=== PATIENT | male | born 1960 | race Caucasian/White ===

== ENCOUNTER 2023-12-28 23:50 | Emergency (ER) | payer MEDICARE ==
[2023-12-29 00:08] VITALS: TEMP 97.4
[2023-12-29] MEDS: TYLENOL 325 MG PO ONE (00:15)
[2023-12-29] MEDS ORDERED: TYLENOL 325 MG ONE (00:15)
--- NOTE | 2023-12-29 00:27 | ERPHSYRPT ---
- History of Present Illness Time Seen by Provider: 12/29/23 00:10 Source: patient Exam Limitations: no limitations Patient Subjective Stated Complaint: pt states "My back started hurting 4 days ago and it is not getting any better." Triage Nursing Assessment: pt ambulatory to bed with slow steady gait, pt alert and oriented x3, skin pwd, pt c/o R middle back pain x4 days, pt has hx of back issues and multiple back surgeries. pt denies any heavy lifting recently. pt denies any new numbness or tingling in extremities. Physician History: 63yo m presents by private vehicle for right sided back and flank pain that has been ongoing for 5d. Pt states he has treated the pain w/ muscle relaxers w/ some relief but they have not helped today. Pt states the pain is worse w/ laying flat. Pt is tender to palpation in lateral mid back around to flank. Pt reports hx of kidney stones, states the pain is similar. Pt also reports significant hx of back injuries and surgeries. Pt denies pain radiation into LEs, denies loss of bowel/bladder function, denies saddle parasthesias, dysuria, hematuria, fevers, n/v. Timing/Duration: day(s) (5) Quality: sharp, aching Back Pain Location: T-spine, paraspinous muscles Severity of Pain-Max: moderate Severity of Pain-Current: moderate Modifying Factors: Improves With: pain medication Associated Symptoms: denies symptoms Allergies/Adverse Reactions: No Known Drug Allergies Allergy (Verified 12/28/23 23:57) Home Medications: Atorvastatin Calcium 40 mg PO DAILY 12/29/23 [History] Clopidogrel Bisulfate [Plavix] 75 mg PO DAILY 12/29/23 [History] Fenofibrate 54 mg PO DAILY 12/29/23 [History] Insuln Asp Prt/Insulin Aspart* [NovoLOG 70/30 Mix] 40 units SQ BID 12/29/23 [History] Metoprolol Succinate 50 mg [Toprol Xl 50 MG] 50 mg PO DAILY 12/29/23 [History] Hx Tetanus, Diphtheria Vaccination/Date Given: No Hx Influenza Vaccination/Date Given: No Hx Pneumococcal Vaccination/Date Given: No Immunizations Up to Date: No Travel Risk - International Travel Have you traveled outside of the country in past 3 weeks: No - Emerging Infectious Disease Are you exhibiting symptoms associated with any current EIDs: No - Review of Systems Constitutional: No Symptoms Respiratory: No Symptoms Cardiac: No Symptoms Abdominal/Gastrointestinal: Other (flank pain) Musculoskeletal: Back Pain, No Injury Neurological: No Symptoms - Past Medical History Pertinent Past Medical History: Yes Neurological History: Peripheral Neuropathy ENT History: No Pertinent History Cardiac History: Myocardial Infarction (ID) Respiratory History: COPD Endocrine Medical History: Diabetes Type II Musculoskeletal History: Fractures GI Medical History: Diverticulitis, GERD, Hernia History: No Pertinent History Psycho-Social History: No Pertinent History Male Reproductive Disorders: No Pertinent History - Past Surgical History Past Surgical History: Yes Neuro Surgical History: No Pertinent History Cardiac: Cardiac Catheterization, Cardiac Stent Respiratory: No Pertinent History Gastrointestinal: No Pertinent History Genitourinary: No Pertinent History Musculoskeletal: No Pertinent History Male Surgical History: No Pertinent History Other Surgical History: L arm, several back surgeries - Social History Smoking Status: Current every day smoker How long have you smoked: 19 Exposure to second hand smoke: No Drug Use: none - Nursing Vital Signs Nursing Vital Signs: Initial Vital Signs Temperature 97.4 F 12/28/23 23:58 Pulse Rate 101 H 12/28/23 23:58 Respiratory Rate 19 12/28/23 23:58 Blood Pressure 164/93 12/28/23 23:58 O2 Sat by Pulse Oximetry 96 12/28/23 23:58 Pain Scale Pain Intensity [Right Upper 7 Back] Pain Intensity 5 - Physical Exam General Appearance: no apparent distress, alert Respiratory Exam: normal breath sounds, lungs clear, No chest tenderness, No respiratory distress Cardiovascular Exam: regular rate/rhythm, normal heart sounds Gastrointestinal Exam: soft, other (mild flank pain - right), No tenderness, No distention, No guarding Back Exam: normal inspection, CVA tenderness (right), muscle spasm, other (TTP over paraspinal musculature right lateral mid thoracic spine), No vertebral tenderness, No rash, No point tenderness Extremity Exam: normal inspection Neurologic Exam: alert, oriented x 3, cooperative, normal mood/affect, sensation nml, No motor deficits, No sensory deficit Skin Exam: normal color, warm, dry SpO2 Interpretation: normal SpO2: 96 O2 Delivery: Room Air Ordered Tests: Active Orders 24 hr Category Date Time Status AMA [Release AMA] OM.NOW Care 12/29/23 01:16 Completed ABDOMEN AND PELVIS W/0 CONTRAS [CT] Stat Exams 12/29/23 00:12 Taken CBC W DIFF Stat Lab 12/29/23 00:43 Completed CMP Stat Lab 12/29/23 00:43 Completed UA W/RFX UR CULTURE Stat Lab 12/29/23 00:12 Ordered Medication Summary Discontinued Medications Generic Name Dose Route Start Last Admin Trade Name Aldo PRN Reason Stop Dose Admin Acetaminophen 975 mg 12/29/23 00:10 12/29/23 00:15 Acetaminophen 325 Mg Tablet PO 12/29/23 00:11 975 mg STAT ONE Administration Acetaminophen Confirm 12/29/23 00:15 Acetaminophen 325 Mg Tablet Administered 12/29/23 00:16 Dose 975 mg .ROUTE .[employer]-MED ONE Lab/Rad Data: Laboratory Result Diagrams 12/29/23 00:43 12/29/23 00:43 Laboratory Results 12/29/23 12/29/23 Range/Units 00:43 00:43 WBC 13.5 H (4.0-10.5) x10^3/uL RBC 5.61 H (4.1-5.6) x10^6/uL Hgb 15.5 (12.5-18.0) g/dL Hct 46.6 (42-50) % MCV 83.1 (78-100) fL MCH 27.6 (26-32) pg MCHC 33.3 (32-36) g/dL RDW 13.7 (11.5-14.0) % Plt Count 199 (150-450) x10^3/uL MPV 9.7 (7.5-11.0) fL Gran % 71.7 H (36.0-66.0) % Immature Gran % (Auto) 0.9 H (0.00-0.4) % Nucleat RBC Rel Count 0.0 (0.00-0.1) % Eos # (Auto) 0.07 (0-0.5) x10^3/uL Immature Gran # (Auto) 0.12 H (0.00-0.03) x10^3u/L Absolute Lymphs (auto) 2.27 (1.0-4.6) x10^3/uL Absolute Monos (auto) 1.33 H (0.0-1.3) x10^3/uL Absolute Nucleated RBC 0.00 (0.00-0.01) x10^3u/L Lymphocytes % 16.8 L (24.0-44.0) % Monocytes % 9.8 (0.0-12.0) % Eosinophils % 0.5 (0.00-5.0) % Basophils % 0.3 (0.0-0.4) % Absolute Granulocytes 9.68 H (1.4-6.9) x10^3/uL Basophils # 0.04 (0-0.4) x10^3/uL Sodium 132 L (135-145) mmol/L Potassium 4.2 (3.5-5.1) mmol/L Chloride 103 (98-107) mmol/L Carbon Dioxide 21 L (22-30) mmol/L Anion Gap 11.7 (5-15) MEQ/L BUN 24 H (9-20) mg/dL Creatinine 1.35 H (0.66-1.25) mg/dL Estimated GFR 59.0 ML/MIN Glucose 231 H (74-106) mg/dL Calcium 9.5 (8.4-10.2) mg/dL Total Bilirubin 0.40 (0.2-1.3) mg/dL AST 18 (17-59) U/L ALT 27 (0-50) U/L Alkaline Phosphatase 112 (38-126) U/L Serum Total Protein 6.6 (6.3-8.2) g/dL Albumin 3.8 (3.5-5.0) g/dL - Progress Progress: pain not gone completely Progress Note: 12/29/23 01:22 I went to discuss lab results w/ pt who then requested to go for a walk outside of the ED. I informed pt that patients are not allowed to leave the ED while under ED care. Pt then stated that if he was not allowed to go outside that he would just leave. I recommended pt stay until all lab work and imaging had resulted, to which he stated he was going home. Nursing staff provided pt w/ AMA paperwork at that time. I discussed possibility for worsening of current condition w/o further workup that could result in serious complications. Pt stated he was aware and still wanted to leave AMA. Counseled pt/family regarding: lab results - Departure Departure Disposition: AMA Clinical Impression: Back pain Qualifiers: Back pain location: thoracic back pain Chronicity: chronic Back pain laterality: right Qualified Code(s): M54.6 - Pain in thoracic spine; G89.29 - Other chronic pain Condition: Stable Critical Care Time: No Referrals: VENICE CALLAHAN MD [Primary Care Provider] - Follow up/PCP as directed
[2023-12-29 00:45] LABS: Absolute Neutrophil Ct (ANC) 9.68 x10^3/uL (1.4-6.9); BASOPHIL % 0.3 % (0.0-0.4); Basophil (Absolute #) 0.04 x10^3/uL (0-0.4); Eosinophil % 0.5 % (0.00-5.0); Eosinophil (Absolute #) 0.07 x10^3/uL (0-0.5); Hematocrit 46.6 % (42-50); Hemoglobin 15.5 g/dL (12.5-18.0); IMMATURE GRAN # 0.12 x10^3u/L (0.00-0.03); IMMATURE GRAN % 0.9 % (0.00-0.4); Lymphocyte (Absolute #) 2.27 x10^3/uL (1.0-4.6); Lymphocytes % 16.8 % (24.0-44.0); Mean Cell Volume 83.1 fL (78-100); Mean Corpuscular Hemoglobin 27.6 pg (26-32); Mean Corpuscular Hgb Concent. 33.3 g/dL (32-36); Mean Platelet Volume 9.7 fL (7.5-11.0); Monocyte (Absolute #) 1.33 x10^3/uL (0.0-1.3); Monocytes % 9.8 % (0.0-12.0); Neutrophil % 71.7 % (36.0-66.0); Platelet Count 199 x10^3/uL (150-450); Red Blood Count 5.61 x10^6/uL (4.1-5.6); Red Cell Distribution Width 13.7 % (11.5-14.0); White Blood Count 13.5 x10^3/uL (4.0-10.5)
[2023-12-29 00:59] LABS: ALBUMIN 3.8 g/dL (3.5-5.0); ANION GAP 11.7 MEQ/L (5-15); BILIRUBIN,TOTAL 0.4 mg/dL (0.2-1.3); Calcium 9.5 mg/dL (8.4-10.2); Creatinine 1 1.35 mg/dL (0.66-1.25); Potassium 4.2 mmol/L (3.5-5.1); Total Protein 6.6 g/dL (6.3-8.2)
[2023-12-29 01:11] VITALS: BP 131/80; PULSE 80; RESP 20
[2023-12-29 01:27] VITALS: O2SAT 96
--- NOTE | 2023-12-29 02:02 | XRAY ---
CLINICAL HISTORY: flank pain, hx kidney stones COMPARISON: None. TECHNIQUE: Multiple axial sections of the abdomen and pelvis were acquired without intravenous contrast administration. Sagittal and coronal reformatted images were obtained. One of the following dose reduction techniques was utilized for this exam: Automated exposure control, adjustment of the mA and/or kV according to patient size, and use of iterative reconstruction. FINDINGS: Two 8 mm and a 9 mm calcified granuloma in the right lower lobe. A 1.6 cm calcified granuloma is seen in the lingula. Otherwise, both lung bases are clear. Average-sized liver with mildly enlarged left lobe. No focal or diffuse abnormality is noted. No intrahepatic duct lesion is seen. The gallbladder is partially contracted. No radiodense calculus. No pericholecystic free fluid or fat stranding. The pancreas, spleen, and adrenal glands are normal. Both kidneys are normal in size, location, and axis. No hydronephrosis or calculus is seen on either side. right renal hypodense cortical cysts, the largest measures about 2.6 x 1.7 cm. Minimal bilateral perinephric stranding, nonspecific versus senescent changes. Normal visualized both ureters. The urinary bladder is optimally distended. No wall thickening or intraluminal calculus is seen. The prostate gland is within normal CT limits. Central prostatic calcification is noted. The stomach, distal esophagus, and small bowel loops appear unremarkable. No acute bowel obstruction or ileus. Moderate colonic stool volume. The appendix is normal. A few scattered colonic diverticula without evidence of acute diverticulitis. Small fat-containing bilateral inguinal hernia. No free fluid or free intraperitoneal air is seen. Atherosclerotic calcification of abdominal aorta noted. No evidence of enlarged mesenteric lymphadenopathy. Moderate degenerative changes are seen in bones. The patient is s/p posterior spinal fixation at L5-S1. IMPRESSION: 1. No acute abdominopelvic abnormality. 2. Right renal hypodense cortical cysts. No nephrolithiasis. 3. Small fat-containing bilateral inguinal hernia. Electronically Signed by: Oxana Fuentes MD. (12/29/2023 01:58:53 EDT)
== END 2023-12-29 01:16 | disposition left against medical advice (07) ==
LOC: ED 23:50
DX: G89.29 Other chronic pain (principal); M54.6 Pain in thoracic spine; R10.9 Unspecified abdominal pain; E11.9 Type 2 diabetes mellitus without complications; Z79.02 Long term (current) use of antithrombotics/antiplatelets; Z79.4 Long term (current) use of insulin; Z79.899 Other long term (current) drug therapy; Z72.0 Tobacco use
CPT/HCPCS: 36415; 74176; 80053; 85025; 99283; A9270-GY